=== PATIENT | male | born 1970 | race Caucasian/White ===

== ENCOUNTER 2019-08-06 23:21 | Emergency (ER) | payer OTHER ==
[~2019-08-06] VITALS: Ht 170.2 cm; Wt 77.1 kg
[~2019-08-06 23:21] MED LIST: BACTRIM DS TAB1 EACH PO; CIALIS5 MG PO; DEPAKOTE250 MG PO; DOXYCYCLINE 10100 M1 PO; LAMICTAL XR100 MG PO; NORCO 5-325 TA1 EACH PO; PRINIVIL5 MG PO; XANAX 0.5 MG0.5 M1
[2019-08-06 23:52] LABS: URINE BLOOD NEGATIVE (Negative); URINE CLARITY CLEAR; URINE COLOR DARK YELLOW; URINE GLUCOSE-RANDOM NEGATIVE (Negative); URINE KETONES TRACE (Negative); URINE LEUKOCYTES-REFLEX NEGATIVE (Negative); URINE NITRITE-REFLEX NEGATIVE (Negative); URINE PROTEIN 2+ (Negative); URINE SPECIFIC GRAVITY >= 1.030 (1.005-1.030)
[2019-08-06 23:54] LABS: ICTOTEST (BILI CONFIRMATORY) Negative (Negative); URINE BILIRUBIN 1+ (Negative)
[2019-08-06 23:59] LABS: BACTERIA-REFLEX >30 Many /HPF (None Seen); CASTS None Seen /LPF (None Seen); CRYSTALS None Seen /LPF (None Seen); MUCUS >6 Heavy strn/LPF (None Seen); SQUAMOUS 0-3 Few /LPF (0-3); URINE WBC-REFLEX 6-15 Few /HPF (0-5)
[2019-08-07 00:02] LABS: ABSOLUTE BASOPHILS 0.1 thou/uL (0.0-0.2); ABSOLUTE EOSINOPHILS 0.1 thou/uL (0.0-0.7); ABSOLUTE LYMPHOCYTES 2.8 thou/uL (0.8-5.3); ABSOLUTE MONOCYTES 1.1 thou/uL (0.0-1.2); ABSOLUTE NEUTROPHILS 12.1 thou/uL (1.6-8.1); BASOPHILS 0.6 %; EOSINOPHILS 0.8 %; HEMATOCRIT 47.5 % (42.0-52.0); HEMOGLOBIN 16.2 gm/dL (14.0-18.0); LYMPHOCYTES 17.3 %; MCH 29.9 pg (26.0-34.0); MCHC 34.1 g/dL (28.0-37.0); MCV 87.8 fL (80.0-100.0); MONOCYTES 6.8 %; MPV 7.6 fl. (7.2-11.1); NUCLEATED RBCS 0 /100WBC; PLATELET COUNT* 310 thou/uL (150-400); POLYS 74.5 %; RBC 5.41 mil/uL (4.50-6.00); RDW-CV 13.9 % (10.5-14.5); WBC 16.3 thou/uL (4.0-11.0)
[2019-08-07 00:42] LABS: ANION GAP 6 mmol/L (7-16); BUN 26 mg/dL (7-18); CALCIUM 9.2 mg/dL (8.5-10.1); CHLORIDE 101 mmol/L (98-107); CO2 31 mmol/L (21-32); CREATININE 1.4 mg/dL (0.6-1.3); GLUCOSE 118 mg/dL (70-99); POTASSIUM 5.1 mmol/L (3.5-5.1); SODIUM 138 mmol/L (136-145)
[2019-08-07 00:56] LABS: ALKALINE PHOSPHATASE 93 U/L (46-116); LIPASE 88 U/L (73-393); SGOT 11 U/L (15-37); SGPT 26 U/L (30-65); TOTAL BILIRUBIN 0.3 mg/dL (<0.1-1.0); TOTAL PROTEIN 7.2 g/dL (6.4-8.2); TROPONIN-I LEVEL <0.06 ng/mL (<0.06)
[2019-08-07] MEDS ORDERED: BACTRIM DS TAB1 EACH PO (01:48)
[2019-08-07] MEDS ORDERED: NORCO 5-325 TA1 EAC1 PO (01:48)
[2019-08-07 02:43] VITALS: BP 122/82
--- NOTE | 2019-08-07 16:15 | EKG ---
[place] [address] ELECTROCARDIOGRAM REPORT Name: BHARATH POTTER Room: [facility]#: [id number] Admission: 08/06/19 Attend Phys: Discharge: 08/07/19 Date of : 72 Report #: [id number] THIS REPORT FOR: //name// [facility] ED Test Date: 2019-08-06 Test Time: 23:49:20 Pat Name: BHARATH POTTER Department: Room: Gender: M Bilingual Receptionist: : 1970 Requested By: Scott Jara Order Number: [id number] MD: Hung Rodrigez Measurements Intervals [place] Rate: 104 P: -7 TN: 129 QRS: 50 QRSD: 85 T: 43 QT: 326 QTc: 429 Interpretive Statements Sinus tachycardia Anteroseptal infarct, old No previous ECG available for comparison Electronically Signed On 08-07-2019 16:15:19 CDT by Hung Rodrigez [email or web address] <ELECTRONICALLY SIGNED> By: Hung Rodrigez MD, [facility] 08/07/19 1615 [id number] Hung Rodrigez MD, FACC /EPI
== END 2019-08-07 02:44 | disposition home or self-care (01) ==
LOC: M.ERS 23:21
PROVIDERS: Family Medicine
DX: L02.411 Cutaneous abscess of right axilla (principal); R10.84 Generalized abdominal pain; R11.2 Nausea with vomiting, unspecified; I10 Essential (primary) hypertension; F41.9 Anxiety disorder, unspecified; Z85.528 Personal history of other malignant neoplasm of kidney

== ENCOUNTER 2019-10-01 19:00 | Emergency (ER) | payer OTHER ==
[~2019-10-01] VITALS: Ht 170.2 cm; Wt 77.1 kg
[~2019-10-01 19:00] MED LIST changes: +NORCO 5-325 TA1 EAC1 PO
[2019-10-01] MEDS ORDERED: IBU600 MG PO (20:09)
[2019-10-01] MEDS ORDERED: TRAMADOL 50 MG50 MG PO (20:09)
[2019-10-01 21:06] VITALS: BP 130/84
== END 2019-10-01 21:09 | disposition home or self-care (01) ==
LOC: M.ERS 19:00
DX: S82.64XA Nondisplaced fracture of lateral malleolus of right fibula, initial encounter for closed fracture (principal); I10 Essential (primary) hypertension; F41.9 Anxiety disorder, unspecified; F17.200 Nicotine dependence, unspecified, uncomplicated; Z85.828 Personal history of other malignant neoplasm of skin; Z85.528 Personal history of other malignant neoplasm of kidney; Z88.5 Allergy status to narcotic agent; W18.39XA Other fall on same level, initial encounter; Y92.89 Other specified places as the place of occurrence of the external cause; Y93.89 Activity, other specified; Y99.8 Other external cause status